=== PATIENT | male | born 1980 | race African-American/Black ===

== ENCOUNTER 2017-03-29 16:54 | Emergency (ER) | payer OTHER ==
[~2017-03-29] VITALS: Ht 182.9 cm; Wt 99.8 kg
[2017-03-29 18:28] VITALS: BP 144/95
[2017-03-29] MEDS ORDERED: CYCL10TA2 PO (20:22)
[2017-03-29] MEDS ORDERED: NAPR500T8 PO (20:22)
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
--- NOTE | 2017-03-30 09:11 | RAD ---
Left elbow, 3 views, 03/29/2017: History: Pain, injury No acute fracture or dislocation is identified. There is no radiographic evidence of a joint effusion. There are 2 calcifications projected over the soft tissues in the antecubital fossa region. The largest of these measures 1 cm. These findings are likely due to old trauma, possibly remote biceps tendon injury. No definite underlying bony defect is seen to suggest an acute avulsion injury. IMPRESSION: 1. Antecubital soft tissue calcifications as described above. 2. No acute bony abnormality is detected.
--- NOTE | 2017-03-30 09:13 | RAD ---
Lumbar spine, 3 views, 03/29/2017: History: Trauma, pain There are 4 lumbar type vertebral bodies with sacralization of L5. No fracture or dislocation is identified. The paraspinous soft tissues are unremarkable. IMPRESSION: No acute lumbar spine abnormality is detected.
== END 2017-03-29 20:25 | disposition home or self-care (01) ==
LOC: ER 16:54
DX: S50.02XA Contusion of left elbow, initial encounter (principal); M54.5 Low back pain; I10 Essential (primary) hypertension; V43.53XA Car driver injured in collision with pick-up truck in traffic accident, initial encounter; Y93.89 Activity, other specified; Y99.8 Other external cause status; Y92.488 Other paved roadways as the place of occurrence of the external cause
CPT/HCPCS: 72100; 73080; 99284